=== PATIENT | male | born 1955 | race Caucasian/White ===

== ENCOUNTER 2016-11-11 07:41 | Observation (INO) | payer OTHER ==
[2016-11-11] MEDS ORDERED: FAMOTIDINE 20 MG TAB PO ONE (07:46)
[2016-11-11] MEDS ORDERED: ASPIRIN EC 325 MG TAB PO ONE (07:46)
[2016-11-11] MEDS ORDERED: diphenhydrAMINE 25 MG CAP PO ONE (07:46)
[2016-11-11] MEDS ORDERED: DIAZEPAM 5 MG TAB PO ONE (07:46)
[2016-11-11] MEDS ORDERED: NS 1,000 ML IV ONE (07:46)
--- NOTE | 2016-11-11 08:10 | CPEKG ---
Heart Rate: 46 RR Interval: 1304 P-R Interval: 212 QRSD Interval: 104 QT Interval: 472 QTC Interval: 413 P [place]: 50 QRS [place]: -22 T Wave [place]: -12 EKG Severity - BORDERLINE ECG - EKG Impression: SINUS BRADYCARDIA EKG Impression: BORDERLINE LEFT AXIS DEVIATION EKG Impression: MINIMAL ST ELEVATION, ANTERIOR LEADS Electronically Signed By: Aakash Dougherty 11-Nov-2016 16:57:31
[2016-11-11 08:31] LABS: % IMMATURE GRANULYOCYTES 0.2 % (0.0-1.1); ABSOLUTE IMMATURE GRANULOCYTES 0.01 10^3/uL (0.00-0.10); ADD DIFF? NO; ADD MORPH? NO; ADD SCAN? NO; ATYPICAL LYMPHOCYTE FLAG 20 (0-99); FRAGMENT RBC FLAG 0 (0-99); HEMATOCRIT 40.5 % (40.0-51.0); LEFT SHIFT FLG 0 (0-99); LIPEMIA HEMOLYSIS FLAG 90 (0-99); MEAN CELL HEMOGLOBIN 32.8 pg (27.9-34.1); MEAN CELL HEMOGLOBIN CONCENTR. 34.6 g/dL (32.4-36.7); MEAN CELL VOLUME 94.8 fL (81.5-99.8); MEAN PLATELET VOLUME 10.9 fL (8.7-11.7); PLATELET CLUMPS FLAG 0 (0-99); PLATELET COUNT 192 10^3/uL (150-400); RED BLOOD CELL COUNT 4.27 10^6/uL (4.40-6.38); RED CELL DISTRIBUTION WIDTH 12.7 % (11.5-15.2)
[2016-11-11 08:40] LABS: ANION GAP 7 mEq/L (8-16); CARBON DIOXIDE 28 mEq/l (22-31); CHLORIDE 105 mEq/L (97-110); CHOLESTEROL 143 mg/dL (140-220); CHOLESTEROL/HDL RATIO 3.58 RATIO (1.00-4.97); CREATININE 0.9 mg/dL (0.7-1.3); GLOMERULAR FILTRATION RATE > 60; GLUCOSE 92 mg/dL (70-100); HIGH DENSITY LIPOPROTEIN 40 mg/dL (40-65); LDL/HDL RATIO 2.23 RATIO (1.00-3.64); LOW DENSITY LIPOPROTEIN 89 mg/dL (80-100); MAGNESIUM 1.8 mg/dL (1.6-2.3); NON-HIGH DENSITY LIPOPROTEIN 103 mg/dL (90-129); POTASSIUM 4.1 mEq/L (3.5-5.2); SODIUM 140 mEq/L (134-144); TRIGLYCERIDE 74 mg/dL (40-150); VERY LOW DENSITY LIPOPROTEINS 14 mg/dL (8-25)
[2016-11-11 08:43] LABS: INR 1.04 (0.83-1.16); PROTIME(PATIENT) 13.5 SEC (12.0-15.0)
[2016-11-11] MEDS ORDERED: LIDOCAINE 1% 30 ML SDV ONE (09:42)
[2016-11-11] MEDS ORDERED: fentaNYL 100 MCG/2 ML INJ ONE (09:43)
[2016-11-11] MEDS ORDERED: MIDAZOLAM 2 MG/2 ML VIAL ONE (09:43)
[2016-11-11] MEDS ORDERED: HEPARIN 10,000 UNIT/10 ML MDV ONE (09:43)
[2016-11-11] MEDS ORDERED: VERAPAMIL 5 MG/2 ML VIAL ONE ×2 (09:43→09:46)
[2016-11-11] MEDS ORDERED: IOPAMIDOL (ISOVUE-370) 150 ML BTL IV ONE ×3 (09:43→10:26)
[2016-11-11] MEDS ORDERED: ADENOSINE 6 MG/2 ML VIAL ONE (09:45)
[2016-11-11] MEDS ORDERED: NITROGLYCERIN 1,500 MCG/15 ML VIAL MISC ONE (09:46)
[2016-11-11] MEDS ORDERED: ETOMIDATE 40 MG/20 ML INJ ONE (10:39)
--- NOTE | 2016-11-11 10:46 | PDDXCAT ---
Diagnostic Cath Note - . Date: 11/11/16 Overlocker: Orlin Indication: other (CCS III angina, known flow-limiting disease in the LAD estimated to be 70% on the basis of prior catheterization.) - Procedure Access: right wrist Procedure: coronary angiography - Materials Left Heart Cath size: 6F Left Heart Cath materials: JL3.5, JR4.0 - Findings-Left Heart Catheterization LM: 4.5 mm in size. Maximal luminal stenosis of 30% in the ostial LM with NEVAEH III flow. LAD: 2.75 mm in size. There is evidence of distreaming with an eccentric lesion estimated to be 70% angiographically (69% in the proximal LAD via QCA) with NEVAEH III flow. There is a high diagonal branch ~2.5 mm in size. The LAD is small distal to the disease with an intramyocardial course. LCX: The left circumflex is ~2.5 mm in size without evidence of flow-limiting disease and NEVAEH III flow throughout. RCA: 4 mm in size. Previous stenting with a 3.5 x 16 mm Synergy drug eluting stent appears to be widely patent without evidence of in-stent restenosis. NEVAEH III flow throughout. Complications: None Estimated blood loss: <50ml Closure method: TR Band Assessment: Severe [place] vessel coronary artery disease including flow- limiting disease in the proximal LAD that required intervention with a 3.0 x 20 mm Synergy drug eluting stent. S/p stent implantation there was 10% residual stenosis and NEVAEH III flow. Previous stenting in the right coronary artery appeared to be patent without in-stent restenosis and NEVAEH III flow throughout. Plan: The patient will need to continue dual antiplatelet therapy (ASA and Effient) for at least 1 year following stent implantation to reduce the risk of in-stent thrombosis. We would also like to achieve a non-HDL cholesterol of less than 100mg/dL with statin therapy. Intervention: A 6 Armenian JL 3.5 guiding catheter was used for guide catheter support. A 0.014 " Intuition Guide Wire was advanced across the lesion in question (proximal LAD lesion estimated to be 69% via QCA) under direct fluoroscopic and angiographic guidance. A 2.75 x 15 Emerge balloon was used to predilate the lesion and inflated to a maximum of 12 jesus of pressure. The balloon was exchanged for a 3.0 x 20 mm Synergy drug eluting stent and inflated to a maximum of 18 jesus of pressure. The stent was exchanged for a 3.5 x 12 mm Emerge balloon and the lesion was post-dilated to a maximum of 16 jesus of pressure. S/p PCI and stent implantation there was 10% residual stenosis and NEVAEH III flow. Patient Problems: Problems Problem Status Diagnosed Chest pain Acute Myocardial infarction Acute
[2016-11-11] MEDS ORDERED: PRASUGREL HCL 10 MG TAB ONE (11:15)
[2016-11-11] MEDS ORDERED: LORazepam 2 MG/ML INJ IVP PRN (11:17)
[2016-11-11] MEDS ORDERED: ONDANSETRON 4 MG/2 ML VIAL IVP PRN (11:17)
[2016-11-11] MEDS ORDERED: NITROGLYCERIN 0.4 MG BTL SL PRN (11:17)
[2016-11-11] MEDS ORDERED: ATROPINE SULFATE 1 MG/10 ML SYR IVP PRN (11:17)
[2016-11-11] MEDS ORDERED: PRASUGREL HCL 10 MG TAB PO ONE (11:17)
[2016-11-11] MEDS ORDERED: ACETAMINOPHEN 325 MG TAB PO PRN (11:17)
[2016-11-11] MEDS ORDERED: ONDANSETRON DISINTEGRATING 4 MG TAB PO PRN (11:17)
[2016-11-11] MEDS ORDERED: TEMAZEPAM 15 MG CAP PO PRN (11:17)
[2016-11-11] MEDS ORDERED: NS 1,000 ML IV SCH (11:30)
--- NOTE | 2016-11-11 11:52 | CPEKG ---
Heart Rate: 44 RR Interval: 1364 P-R Interval: 236 QRSD Interval: 104 QT Interval: 492 QTC Interval: 421 P [place]: 50 QRS [place]: -27 T Wave [place]: -17 EKG Severity - ABNORMAL ECG - EKG Impression: SINUS BRADYCARDIA EKG Impression: FIRST DEGREE AV BLOCK EKG Impression: BORDERLINE LEFT AXIS DEVIATION Electronically Signed By: Aakash Dougherty 11-Nov-2016 16:57:20
[2016-11-12 04:43] VITALS: TEMP 97.9
[2016-11-12] MEDS: FAMOTIDINE 20 MG TAB PO SCH ×2 (04:56→08:12)
[2016-11-12 05:54] LABS: % IMMATURE GRANULYOCYTES 0.2 % (0.0-1.1); ABSOLUTE IMMATURE GRANULOCYTES 0.01 10^3/uL (0.00-0.10); ADD DIFF? NO; ADD MORPH? NO; ADD SCAN? NO; ATYPICAL LYMPHOCYTE FLAG 40 (0-99); FRAGMENT RBC FLAG 0 (0-99); HEMATOCRIT 37.5 % (40.0-51.0); HEMOGLOBIN 13.1 g/dL (13.7-17.5); LEFT SHIFT FLG 0 (0-99); LIPEMIA HEMOLYSIS FLAG 90 (0-99); MEAN CELL HEMOGLOBIN 33.4 pg (27.9-34.1); MEAN CELL HEMOGLOBIN CONCENTR. 34.9 g/dL (32.4-36.7); MEAN CELL VOLUME 95.7 fL (81.5-99.8); MEAN PLATELET VOLUME 10.8 fL (8.7-11.7); PLATELET CLUMPS FLAG 0 (0-99); PLATELET COUNT 169 10^3/uL (150-400); RED BLOOD CELL COUNT 3.92 10^6/uL (4.40-6.38); RED CELL DISTRIBUTION WIDTH 12.6 % (11.5-15.2)
[2016-11-12 06:14] LABS: ALBUMIN 3.1 g/dL (3.5-5.0); ANION GAP 9 mEq/L (8-16); ASPARTATE AMINOTRANSFERASE 32 IU/L (17-59); BILIRUBIN,TOTAL 0.9 mg/dL (0.1-1.4); CALCIUM 8.9 mg/dL (8.5-10.4); CARBON DIOXIDE 25 mEq/l (22-31); CHLORIDE 106 mEq/L (97-110); CREATININE 0.8 mg/dL (0.7-1.3); GLOMERULAR FILTRATION RATE > 60; GLUCOSE 92 mg/dL (70-100); LACTATE DEHYDROGENASE 366 IU/L (313-618); MAGNESIUM 1.8 mg/dL (1.6-2.3); POTASSIUM 3.9 mEq/L (3.5-5.2); SODIUM 140 mEq/L (134-144)
--- NOTE | 2016-11-12 08:54 | CPEKG ---
Heart Rate: 57 RR Interval: 1053 P-R Interval: 196 QRSD Interval: 108 QT Interval: 436 QTC Interval: 425 P [place]: 44 QRS [place]: -26 T Wave [place]: -16 EKG Severity - ABNORMAL ECG - EKG Impression: SINUS RHYTHM EKG Impression: INCOMPLETE RIGHT BUNDLE BRANCH BLOCK EKG Impression: ABNORMAL T, CONSIDER ISCHEMIA, INFERIOR LEADS EKG Impression: Mild ST elevation high lateral leads (I and AVL). Consider lateral ischemia or EKG Impression: infarct. Electronically Signed By: Aakash Dougherty 12-Nov-2016 17:34:00
[2016-11-12] MEDS ORDERED: ASPIRIN EC 325 MG TAB PO SCH (09:00)
[2016-11-12] MEDS ORDERED: Herbals/Supplements -Info Only PO SCH (09:00)
[2016-11-12] MEDS ORDERED: LISINOPRIL 2.5 MG TAB PO SCH (09:00)
[2016-11-12] MEDS ORDERED: PRASUGREL HCL 10 MG TAB PO SCH (09:00)
[2016-11-12] MEDS ORDERED: ROSUVASTATIN CALCIUM 10 MG TAB PO SCH (09:00)
[2016-11-12 09:14] VITALS: BP 114/67; PULSE 55; RESP 16; O2SAT 90
--- NOTE | 2016-11-12 09:38 | GDS ---
[f rep st] DISCHARGE SUMMARY PRIMARY GAS FITTER APPRENTICE: Dr. Tyrel Ordaz. DISCHARGE DIAGNOSES: 1. Coronary artery disease, status post stenting to the left anterior descending artery for 70% sten osis with a 3.0 x 20 mm Synergy drug-eluting stent. 2. Hyperlipidemia. 3. Prior stenting to the RCA on August 17, 2016. HOSPITAL COURSE: For a detailed H and P, please see prior dictation. Briefly, Sukhwinder Perales is a 60- year-old male who initially presented to the hospital on 08/17 with a subendocardial myocardial infar ction. At that time, his right coronary artery was stented with a 3.5 x 16 mm Synergy drug-eluting s tent. The LAD also had high-grade stenosis, but it was not intervened upon. The patient presented b ack to our office with concerning symptoms for angina. A nuclear stress test was normal, but this wa s thought to be falsely negative. Ultimately, the decision was made to proceed with angiogram and po ssible intervention of the LAD. This was performed by Dr. Tyrel Ordaz on November 11, 2016. The LAD was found to have 70% stenosis within the proximal segment. This was stented with a 3.0 x 20 mm Syn ergy drug-eluting stent. His prior stent placed at RCA was widely patent. The left circumflex arter y had non-flow limiting disease throughout. The left main did have 30% ostial stenosis. On the day of discharge, the patient denied any chest discomfort. He was monitored on telemetry and remained in normal sinus rhythm. His EKG at the time of discharge revealed sinus bradycardia with a heart rate of 57 with an incomplete right bundle branch block. He has T-wave inversion in the inferi or leads. PHYSICAL EXAMINATION: GENERAL: Patient appears in no acute distress. VITAL SIGNS: Blood pressure 108/63, heart rate 50, oxygen saturation of 94% on room air. LUNGS: Clear to auscultation. No whee zes, rhonchi, or crackles auscultated. CARDIAC: Regular rate and rhythm without any murmurs, rubs, or gallops appreciated. EXTREMITIES: Right wrist, where access was obtained for the EP study and ab lation, is clean and intact without any evidence of infection or hematoma. LABORATORY: LDL is 89. DISCHARGE MEDICATIONS: Aspirin 325 mg x1 month. He can then reduce it to 81 mg daily. Effient 10 m g daily, lisinopril 2.5 mg daily. His Crestor has been increased to 20 mg daily, herbal supplement garfield torres. PLAN: Sukhwinder is currently stable and ready for discharge home. He is aware that he is to remain on a spirin and Effient for a minimum of 1 year. His aspirin will begin at 325 mg but after 1 month can b e reduced to 81 mg daily. His LDL was elevated at 89, and therefore his Crestor was increased to 20 mg daily. Plan to repeat a fasting lipid profile and liver function test in 3 months. He will follo w up as scheduled in 1-2 weeks. /[id number]/MODL
== END 2016-11-12 10:14 | disposition home or self-care (01) ==
LOC: FCATH 07:41 → F2W 11:17
PROVIDERS: ADMIT Internal Medicine Cardiovascular Disease; ATTEND Internal Medicine Interventional Cardiology
PROC: 027034Z Dilation of Coronary Artery, One Artery with Drug-eluting Intraluminal Device, Percutaneous Approach (ICD-10-PCS; principal; 2016-11-11)
DX: I25.10 Atherosclerotic heart disease of native coronary artery without angina pectoris (principal); I10 Essential (primary) hypertension; E78.5 Hyperlipidemia, unspecified; I25.2 Old myocardial infarction; Z95.5 Presence of coronary angioplasty implant and graft
CPT/HCPCS: 92928; 93005; 93454; C1725; C1769; C1887; G0378; C1874; C9600; J0153; J1644; J2250; J3010; Q9967

== ENCOUNTER 2016-12-02 14:57 | Emergency (ER) | payer OTHER ==
[2016-12-02 15:14] VITALS: RESP 18; TEMP 97.7
--- NOTE | 2016-12-02 15:49 | EDPHY ---
H & P Time Seen by Provider: 12/02/16 15:22 HPI/ROS: Chief complaint. Swelling left forearm, injury and redness right wrist HPI. 60-year-old male presents with about 1 week history of swollen left forearm with some bruising and discoloration. It began after he hit it on a door knob. However he has had swelling pain and some discoloration to the inner aspect of his left forearm from elbow to wrist. The patient also has redness swelling and soreness to the right wrist especially on the flexor side. On 11/11/2016 he had stenting of his LAD through the radial artery on the right wrist however this is been seen several times by his hazardous materials tanker driver and it looks good. He has been doing increased activity and has been doing pushups and it and using weights. For the last 1 or 2 days he has had increased pain redness swelling to this area with painful range of motion. He has had no chest discomfort knee and no symptoms similar to his angina. No fever. No shortness of breath. He also complains of some altered sensation to 4th and 5th fingers on both hands. He apparently does have some chronic neck pain. ROS Constitutional. no fever/chills, no weakness Eyes. no problems with vision ENT. no sore throat, no nasal drainage Cardiovascular. no chest pain Respiratory. no shortness of breath, no cough Abdominal. no abdominal pain, no nausea/vomiting, no diarrhea . no problems urinating MS. Bruising swelling to the left forearm. Redness and swelling to the right wrist Skin. no rash Lymph. no swollen glands Neuro. no headache, no dizziness, no difficulty walking or with speech Past Medical/Surgical History: Past medical history coronary artery disease with stenting, hyperlipidemia, [place] Social History: , nonsmoker, no alcohol Smoking Status: Never smoked Physical Exam: General Appearance: Alert well-developed male mild distress vital signs are stable Eyes: Pupils equal and round no pallor or injection. ENT, Mouth: Mucous membranes are moist. Respiratory: There are no retractions, lungs are clear to auscultation. Cardiovascular: Regular rate and rhythm. Gastrointestinal: Abdomen is soft and nontender, no masses, bowel sounds normal. Neurological: Awake and alert, sensory and motor exams grossly normal. Skin: Warm and dry, no rashes. Musculoskeletal: Neck is supple nontender. Extremities bruising and swelling to the inner aspect of the left forearm. Radial and ulnar pulses are good. He has good range of motion. Redness on the flexor side of the right wrist with tenderness over the distal radius. His puncture site from angioplasty appears well healed. Psychiatric: Patient is oriented X 3, there is no agitation. Constitutional: Initial Vital Signs Temperature (C) 36.5 C 12/02/16 15:09 Heart Rate 54 L 12/02/16 15:09 Respiratory Rate 18 12/02/16 15:09 Blood Pressure 115/79 12/02/16 15:09 O2 Sat (%) 96 12/02/16 15:09 O2 Delivery Mode Room Air Allergies/Adverse Reactions: No Known Allergies Allergy (Verified 12/02/16 15:08) Home Medications: Medication Instructions Recorded Herbals/Supplements -Info Only 1 ea PO DAILY 11/11/16 Lisinopril [Zestril 2.5 mg (*)] 2.5 mg PO DAILY 11/11/16 Prasugrel HCl [Effient 10mg (*)] 10 mg PO DAILY 11/11/16 Aspirin EC [Aspirin EC 325 mg (*)] 325 mg PO DAILY #0 tab 11/12/16 Rosuvastatin Calcium [Crestor 20mg 20 mg PO DAILY #30 tab 11/12/16 (*)] Hydrocodone/APAP 5/325 [[place] 1 each PO Q4-6PRN PRN #14 tab 12/02/16 5/325 (*)] Medical Decision Making - Diagnostics EKG Interpretation: Declines EKG Imaging: Ultrasound of the left arm is negative for DVT. It is reviewed by me and discussed with Dr. Kong X-ray right wrist interpreted by me as no fracture dislocation Procedures: I recommended that we place a splint on the right wrist. He says he has a splint at home which he will wear. ED Course/Re-evaluation: Re-evaluated at 4:30 p.m. patient is stable. The patient and I discussed imaging study results, treatment plan. Again I recommended EKG however the patient says that he thinks his heart is fine at this point and does not wish an EKG. We discussed treatment plan including criteria for return importance of follow-up further evaluation. He expresses understanding and agreement Differential Diagnosis: I suspect that the right forearm is an overuse injury as the patient has been doing pushups and using some weights. He also fell on it he yesterday. I did consider cellulitis as well. I considered DVT to the left forearm which the patient does not have Departure - Departure Disposition: Home, Routine, Self-Care Clinical Impression: Right wrist sprain Qualifiers: Encounter type: initial encounter Qualifier Code: (S63.501A) Unspecified sprain of right wrist, initial encounter Contusion of left forearm Qualifiers: Encounter type: initial encounter Qualifier Code: (S50.12XA) Contusion of left forearm, initial encounter Condition: Good Instructions: Wrist Sprain (ED) Additional Instructions: Wear splint on right wrist for 1 week. Ice next 24-48 hours. Tylenol or hydrocodone as needed for pain. Return for worsening pain and redness or fever to right forearm. Return for chest discomfort or trouble breathing. Recheck by regular physician in 2-3 days if left forearm and right wrist are not improving Referrals: NONE *PRIMARY CARE P,. [Primary Care Provider] - As per Instructions DENICE MARI [Medical Doctor] - 2-3 days, if not improved Prescriptions: Hydrocodone/APAP 5/325 [[place] 5/325 (*)] 1 each PO Q4-6PRN PRN #14 tab PRN Reason: Pain, Moderate
--- NOTE | 2016-12-02 16:26 | US ---
Left Upper Extremity Duplex Venous Ultrasound Indication: Left arm pain and swelling Technique: The left upper extremity deep venous system was interrogated with coley-scale, color, and D oppler imaging. Comparison: None Findings: The internal jugular, axillary, basilic, brachial, cephalic, radial, and ulnar veins all no rmally compress on coley-scale imaging and have appropriate flow and waveforms on spectral Doppler sandra ging. The subclavian vein and innominate vein have normal flow and phasicity. No mass or enlarged lym ph node. Impression: Negative. No deep venous thrombosis or fluid collection. Comment: The negative results were discussed with Lee. He will convey the negative results to Dr. Debbie Nolasco.
--- NOTE | 2016-12-02 16:29 | DX ---
Right Wrist, 4 views including a navicular view History: Pain post trauma. Fell on ice. Findings: No acute fracture or dislocation is identified. The navicular bone looks normal. I suspect there is an old solidly healed fracture of the proximal first metacarpal. Impression: Nothing acute identified.
[2016-12-02 16:58] VITALS: BP 122/75; PULSE 48; O2SAT 92
== END 2016-12-02 16:50 | disposition home or self-care (01) ==
DX: S63.501A Unspecified sprain of right wrist, initial encounter (principal); S50.12XA Contusion of left forearm, initial encounter; I25.10 Atherosclerotic heart disease of native coronary artery without angina pectoris; I25.2 Old myocardial infarction; Z79.82 Long term (current) use of aspirin; Z95.5 Presence of coronary angioplasty implant and graft; W22.8XXA Striking against or struck by other objects, initial encounter

== ENCOUNTER 2017-03-27 15:47 | Emergency (ER) | payer OTHER ==
--- NOTE | 2017-03-27 16:41 | CPEKG ---
Heart Rate: 45 RR Interval: 1333 P-R Interval: 224 QRSD Interval: 100 QT Interval: 480 QTC Interval: 416 P [place]: 28 QRS [place]: -29 T Wave [place]: -11 EKG Severity - ABNORMAL ECG - EKG Impression: SINUS BRADYCARDIA EKG Impression: FIRST DEGREE AV BLOCK EKG Impression: LEFT VENTRICULAR HYPERTROPHY EKG Impression: ABNORMAL T, CONSIDER ISCHEMIA, INFERIOR LEADS Electronically Signed By: Pippa Molina 27-Mar-2017 22:10:31
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
[2017-03-27 17:33] LABS: % IMMATURE GRANULYOCYTES 0.4 % (0.0-1.1); ABSOLUTE IMMATURE GRANULOCYTES 0.02 10^3/uL (0.00-0.10); ADD DIFF? NO; ADD MORPH? NO; ADD SCAN? NO; ATYPICAL LYMPHOCYTE FLAG 10 (0-99); FRAGMENT RBC FLAG 0 (0-99); HEMATOCRIT 42.9 % (40.0-51.0); HEMOGLOBIN 14.7 g/dL (13.7-17.5); LEFT SHIFT FLG 0 (0-99); LIPEMIA HEMOLYSIS FLAG 90 (0-99); MEAN CELL HEMOGLOBIN CONCENTR. 34.3 g/dL (32.4-36.7); MEAN CELL VOLUME 96.2 fL (81.5-99.8); MEAN PLATELET VOLUME 11.2 fL (8.7-11.7); PLATELET CLUMPS FLAG 0 (0-99); PLATELET COUNT 190 10^3/uL (150-400); RED BLOOD CELL COUNT 4.46 10^6/uL (4.40-6.38); RED CELL DISTRIBUTION WIDTH 12.6 % (11.5-15.2)
[2017-03-27 17:38] LABS: ANION GAP 10 mEq/L (8-16); CALCIUM 10.1 mg/dL (8.5-10.4); CARBON DIOXIDE 27 mEq/l (22-31); CHLORIDE 103 mEq/L (97-110); GLOMERULAR FILTRATION RATE > 60; GLUCOSE 83 mg/dL (70-100); POTASSIUM 4.1 mEq/L (3.5-5.2); SODIUM 140 mEq/L (134-144)
[2017-03-27 17:50] LABS: TROPONIN I < 0.012 ng/mL (0-0.034)
[2017-03-27 19:13] VITALS: PULSE 54
[2017-03-27 19:25] VITALS: BP 130/77; RESP 16; TEMP 98.4; O2SAT 96
== END 2017-03-27 19:24 | disposition home or self-care (01) ==
DX: R55 Syncope and collapse (principal); R00.1 Bradycardia, unspecified; I10 Essential (primary) hypertension; I25.2 Old myocardial infarction; Z79.82 Long term (current) use of aspirin; Z95.5 Presence of coronary angioplasty implant and graft

== ENCOUNTER 2017-07-29 21:12 | Emergency (ER) | payer OTHER ==
[2017-07-29 21:18] VITALS: TEMP 97.9
--- NOTE | 2017-07-29 22:46 | EDPHY ---
H & P Stated Complaint: continuous heachache x 2 weeks ago. pt states on blood thinner and hit head Time Seen by Provider: 07/29/17 21:57 HPI/ROS: HPI The patient presents with headache for the last 2 weeks which began after hitting his head on a tree when he was bending over. He did not lose consciousness at that time. Since then he has had an intermittent headache which is achy in nature, diffuse, and tight. He did sustain some abrasions which have now resolved. He is on Effient and aspirin. He is also reporting that his sinuses feel clogged. He does not have changes in his vision or vomiting.. REVIEW OF SYSTEMS Constitutional: No fever, no chills. Eyes: No discharge. ENT: No sore throat. Cardiovascular: No chest pain, no palpitations. Respiratory: No cough, no shortness of breath. Gastrointestinal: No abdominal pain, no vomiting. Genitourinary: No hematuria. Musculoskeletal: No back pain. Skin: No rashes. Neurological: No headache. PMHx: CAD Soc Hx: Housed, traveling to [facility] next week PHYSICAL General Appearance: Alert, no distress Eyes: Pupils equal and round no pallor or injection ENT, Mouth: Mucous membranes moist Respiratory: There are no retractions, lungs are clear to auscultation Cardiovascular: Regular rate and rhythm Gastrointestinal: Abdomen is soft and non-tender, no masses, bowel sounds normal Neurological: A&O, cranial nerves 2-12 intact, 5/5 strength in upper and lower extremities which is symmetric, normal gait, normal finger to nose testing Skin: Warm and dry, no rashes Musculoskeletal: Neck is supple non tender Extremities: symmetrical, full range of motion Psychiatric: Patient is oriented X 3, there is no agitation Source: Patient Exam Limitations: No limitations - Personal History Current Tetanus/Diphtheria Vaccine: Yes Tetanus Vaccine Date: 2014 - Medical/Surgical History Hx Asthma: No Hx Chronic Respiratory Disease: No Hx Diabetes: No Hx Cardiac Disease: Yes Hx Renal Disease: No Hx Cirrhosis: No Hx Alcoholism: No Hx HIV/AIDS: No Hx Splenectomy or Spleen Trauma: No Other PMH: R inguinal hernia repair, Knee arthoscope-2016, hyperlipidemia; V. MENIGITIS;. psh: [place]; CARDIAC STENTS X 2; - Social History Smoking Status: Never smoked Constitutional: Initial Vital Signs Temperature (C) 36.6 C 07/29/17 21:15 Heart Rate 52 L 07/29/17 21:15 Respiratory Rate 18 07/29/17 21:15 Blood Pressure 125/74 H 07/29/17 21:15 O2 Sat (%) 96 07/29/17 21:15 O2 Delivery Mode Room Air Allergies/Adverse Reactions: No Known Allergies Allergy (Verified 03/27/17 16:17) Home Medications: Medication Instructions Recorded Lisinopril [Zestril 2.5 mg (*)] 2.5 mg PO DAILY 11/11/16 Prasugrel HCl [Effient 10mg (*)] 10 mg PO DAILY 11/11/16 Aspirin EC [Aspirin EC 325 mg (*)] 325 mg PO DAILY #0 tab 11/12/16 Rosuvastatin Calcium [Crestor 20mg 20 mg PO DAILY #30 tab 11/12/16 (*)] Medical Decision Making - Diagnostics Imaging Results: Imaging Impressions Head CT 07/29/17 22:09 Impression: 1. Negative for intracranial hemorrhage. 2. Chronic sinusitis. I telephoned results to Jaye Mccall at 10:41 PM. Imaging: Discussed imaging studies w/ call or contact centre coach Radiologist Differential Diagnosis: This is a 61-year-old male who presents with headache for the last 2 weeks after hitting his head on a tree. He is on Effient and aspirin. Differential diagnosis includes intracranial hemorrhage, concussion, sinusitis. In the emergency department, CT scan of head was obtained and was unremarkable. I feel he may be suffering from a mild concussion I have discussed this with him. He will be discharged from the ER in good condition. Departure - Departure Disposition: Home, Routine, Self-Care Clinical Impression: Headache Condition: Good Instructions: Acute Headache (ED) Additional Instructions: Your CT scan showed no intracranial hemorrhage, i.e. bleeding. You should take ibuprofen or Tylenol as needed for the headache. You may try a decongestant as well. Referrals: DENICE MARI [Primary Care Provider] - As per Instructions
[2017-07-29 22:55] VITALS: BP 114/78; PULSE 47; RESP 16; O2SAT 93
== END 2017-07-29 22:55 | disposition home or self-care (01) ==
DX: S09.90XA Unspecified injury of head, initial encounter (principal); I25.10 Atherosclerotic heart disease of native coronary artery without angina pectoris; I25.2 Old myocardial infarction; Z79.82 Long term (current) use of aspirin; W22.09XA Striking against other stationary object, initial encounter

== ENCOUNTER 2019-02-23 13:58 | Emergency (ER) | payer OTHER ==
--- NOTE | 2019-02-23 14:29 | EDPHY ---
HPI/HX/ROS/PE/MDM Narrative: CHIEF COMPLAINT: Left arm numbness, nausea, diaphoresis. HPI: This patient is a 63 year old male with past medical history including CAD s/p stent placement, hyperlipidemia. He arrives today complaining of left arm numbness with associated mild nausea and diaphoresis. He had been working in his garage today cleaning and after lunch, he developed left hand numbness and pain. He lay down and felt cold and diaphoretic. He describes feeling "out of it " and lethargic. He has history of CO two years ago with stent placement and notes he had arm pain at that time as well, but this was different from his sensation today and he did not have numbness then. He endorses nausea. The patient notes he has history of neck problems which cause some paresthesias in his arm but he can usually resolve these by stretching his neck. He describes ulnar distribution numbness today which he cannot resolve with neck stretches. No chest pain. No shortness of breath. No recent illness, cough, or cold symptoms, no recent trauma. REVIEW OF SYSTEMS: A comprehensive 10 system review of systems is otherwise negative aside from elements mentioned in the history of present illness and medical decision making. PMH: CO s/p stent placement. Hyperlipidemia. Hernia repair. Knee arthroscopy. SOCIAL HISTORY: . 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 PHYSICAL EXAM: General:Patient is alert, in no acute distress. ENT:Eyes are normal to inspection. ENT inspection normal. Neck: Normal inspection. Full range of motion. Respiratory:No respiratory distress. Breath sounds normal bilaterally. Cardiovascular: Regular rate and rhythm. Strong peripheral pulses. Normal cap refill. Abdomen:The abdomen is nontender to palpation. There are no peritoneal signs. There are normal bowel sounds. Back: Normal to inspection. No tenderness to palpation. Skin: Normal color. No rash. Warm and dry. Extremities: Normal appearance. Full range of motion. Neuro: Oriented x3. Normal motor function. Normal sensory function. ED Course: 63 y/o male with history of prior CO s/p stent placement presents with left arm numbness and fatigue with associated nausea and diaphoresis. Plan for EKG, chest x-ray, labs including CBC, chemistries, POC troponin. EKG was ordered and interpreted by myself. Please see [facility] system for official reading. Chest x-ray is negative for acute processes. Reviewed laboratory studies. These are completely unremarkable. Troponin negative at 0.00. Reassessed. Discussed imaging and laboratory studies. The patient's numbness involves primarily his ring and pinky finger in a dermatome distribution which would suggest his symptoms are more likely due to his chronic neck issues than of cardiac etiology. We discussed observation in here in the ED for repeat troponin vs admission for further cardiac workup. The patient declines both and agrees to follow up with his granulator in the outpatient setting as soon as possible. Plan to discharge home in good condition. Follow up and strict return precautions discussed. The patient is comfortable with this plan. - Data Points Laboratory Results: Laboratory Results 02/23/19 14:15 02/23/19 14:15 02/23/19 02/23/19 02/23/19 14:23 14:15 14:15 WBC 4.83 10^3/uL 10^3/uL (3.80-9.50) RBC 4.36 10^6/uL L 10^6/uL (4.40-6.38) Hgb 14.3 g/dL g/dL (13.7-17.5) Hct 41.3 % % (40.0-51.0) MCV 94.7 fL fL (81.5-99.8) MCH 32.8 pg pg (27.9-34.1) MCHC 34.6 g/dL g/dL (32.4-36.7) RDW 12.8 % % (11.5-15.2) Plt Count 177 10^3/uL 10^3/uL (150-400) MPV 10.8 fL fL (8.7-11.7) Neut % (Auto) 49.5 % % (39.3-74.2) Lymph % (Auto) 37.7 % % (15.0-45.0) [place] % (Auto) 8.9 % % (4.5-13.0) Eos % (Auto) 3.1 % % (0.6-7.6) Baso % (Auto) 0.6 % % (0.3-1.7) Nucleat RBC Rel Count 0.0 % % (0.0-0.2) Absolute Neuts (auto) 2.39 10^3/uL 10^3/uL (1.70-6.50) Absolute Lymphs (auto) 1.82 10^3/uL 10^3/uL (1.00-3.00) Absolute Monos (auto) 0.43 10^3/uL 10^3/uL (0.30-0.80) Absolute Eos (auto) 0.15 10^3/uL 10^3/uL (0.03-0.40) Absolute Basos (auto) 0.03 10^3/uL 10^3/uL (0.02-0.10) Absolute Nucleated RBC 0.00 10^3/uL 10^3/uL (0-0.01) Immature Gran % 0.2 % % (0.0-1.1) Immature Gran # 0.01 10^3/uL 10^3/uL (0.00-0.10) Sodium 136 mEq/L mEq/L (135-145) Potassium 4.5 mEq/L mEq/L (3.5-5.2) Chloride 103 mEq/L mEq/L (97-110) Carbon Dioxide 25 mEq/l mEq/l (22-31) Anion Gap 8 mEq/L mEq/L (6-14) BUN 17 mg/dL mg/dL (7-23) Creatinine 0.9 mg/dL mg/dL (0.7-1.3) Estimated GFR > 60 Glucose 90 mg/dL mg/dL (70-100) Calcium 9.9 mg/dL mg/dL (8.5-10.4) POC Troponin I 0.00 ng/mL ng/mL (0.00-0.08) Point of Care Test Results: Chemistry 02/23/19 14:23 POC Troponin I 0.00 ng/mL ng/mL (0.00-0.08) General Time Seen by Provider: 02/23/19 14:20 Initial Vital Signs: Initial Vital Signs Temperature (C) 36.8 C 02/23/19 14:06 Heart Rate 49 L 02/23/19 14:06 Respiratory Rate 16 02/23/19 14:06 Blood Pressure 116/70 02/23/19 14:06 O2 Sat (%) 95 02/23/19 14:06 O2 Delivery Mode Room Air Allergies/Adverse Reactions: No Known Allergies Allergy (Verified 02/23/19 14:05) Home Medications: Medication Instructions Recorded Lisinopril [Zestril 2.5 mg (*)] 2.5 mg PO DAILY 11/11/16 Aspirin EC [Aspirin EC 325 mg (*)] 325 mg PO DAILY #0 tab 11/12/16 Rosuvastatin Calcium [Crestor 20mg 20 mg PO DAILY #30 tab 11/12/16 (*)] Departure - Departure Disposition: Home, Routine, Self-Care Clinical Impression: Left upper extremity numbness Condition: Good Instructions: Chest Pain (ED), Paresthesia (ED) Additional Instructions: Follow up with your granulator for further testing, as soon as possible, within one week. Return to the Emergency Department immediately for fever, chest pain, shortness of breath, increasing pain or other worsening of condition. As we discussed, it is impossible to fully rule out heart disease as the cause of your symptoms in the emergency department. We would be happy to reevaluate you and observe you in the hospital at any time. Referrals: Chang Parisi MD [Primary Care Provider] - As per Instructions Report Scribed for: Farhad Mendez Report Scribed by: Emma Garcia Date of Report: 02/23/19 Time of Report: 14:24 Physician Review and Approval Statement: Portions of this note were transcribed by an ED scribe. I personally performed the history, physical exam, and medical decision making; and confirm the accuracy of the information in the transcribed note.
[2019-02-23 14:43] LABS: PLATELET COUNT 177 10^3/uL (150-400)
[2019-02-23 15:57] VITALS: BP 120/78
--- NOTE | 2019-02-28 19:16 | CPEKG ---
Test Reason : OPEN Blood Pressure : / mmHG Vent. Rate : 045 BPM Atrial Rate : 045 BPM P-R Int : 206 ms QRS Dur : 108 ms QT Int : 458 ms P-R-T Axes : 047 -39 -15 degrees QTc Int : 397 ms Sinus bradycardia Abnormal R-wave progression, early transition Left ventricular hypertrophy Nonspecific T abnormalities, inferior leads Confirmed by Farhad Mendez ([id number] on 02/28/2019 7:15:31 PM Referred By: PHYSICIAN ED Confirmed By:Farhad Mendez
== END 2019-02-23 15:56 | disposition home or self-care (01) ==
DX: R20.2 Paresthesia of skin (principal); R11.0 Nausea; R61 Generalized hyperhidrosis; Z95.820 Peripheral vascular angioplasty status with implants and grafts
CPT/HCPCS: 84484-ER